=== PATIENT | male | born 1990 | race Caucasian/White ===

== ENCOUNTER 2017-09-29 19:34 | Emergency (ER) | payer OTHER ==
[2017-09-29 19:53] VITALS: O2SAT 97
[2017-09-29] MEDS ORDERED: NS 1,000 ML IV ONE ×2 (20:25→21:21)
[2017-09-29 20:29] LABS: % IMMATURE GRANULYOCYTES 0.5 % (0.0-1.1); ABSOLUTE IMMATURE GRANULOCYTES 0.06 10^3/uL (0.00-0.10); ADD DIFF? NO; ADD MORPH? NO; ADD SCAN? NO; ATYPICAL LYMPHOCYTE FLAG 30 (0-99); FRAGMENT RBC FLAG 0 (0-99); HEMATOCRIT 39.3 % (40.0-51.0); HEMOGLOBIN 13.9 g/dL (13.7-17.5); LEFT SHIFT FLG 0 (0-99); LIPEMIA HEMOLYSIS FLAG 90 (0-99); MEAN CELL HEMOGLOBIN 30.5 pg (27.9-34.1); MEAN CELL HEMOGLOBIN CONCENTR. 35.4 g/dL (32.4-36.7); MEAN CELL VOLUME 86.2 fL (81.5-99.8); MEAN PLATELET VOLUME 8.9 fL (8.7-11.7); PLATELET CLUMPS FLAG 0 (0-99); PLATELET COUNT 311 10^3/uL (150-400); RED BLOOD CELL COUNT 4.56 10^6/uL (4.40-6.38); RED CELL DISTRIBUTION WIDTH 11.8 % (11.5-15.2)
[2017-09-29 20:47] LABS: ALANINE AMINOTRANSFERASE 46 IU/L (21-72); ALBUMIN 4.3 g/dL (3.5-5.0); ALKALINE PHOSPHATASE 73 IU/L (38-126); ANION GAP 22 mEq/L (8-16); ASPARTATE AMINOTRANSFERASE 23 IU/L (17-59); BILIRUBIN,TOTAL 0.2 mg/dL (0.1-1.4); CALCIUM 9.4 mg/dL (8.5-10.4); CARBON DIOXIDE 26 mEq/l (22-31); CHLORIDE 100 mEq/L (97-110); CREATININE 0.9 mg/dL (0.7-1.3); GLOMERULAR FILTRATION RATE > 60; GLUCOSE 120 mg/dL (70-100); POTASSIUM 3.4 mEq/L (3.5-5.2); SODIUM 148 mEq/L (134-144); TOTAL PROTEIN 7.7 g/dL (6.3-8.2)
--- NOTE | 2017-09-29 21:05 | EDPHY ---
H & P Time Seen by Provider: 09/29/17 19:45 HPI/ROS: 27-year-old male presents complaining approximately 10 days. It initially began with a sore throat, cough, body aches, fevers and chills. By day 7 he began to have some vomiting, which has resolved. He states his last fever was yesterday at noon. He saw his primary care physician earlier this week who stated they felt he had the flu and recommended symptomatic care he was also prescribed guaifenesin with codeine. He presents today because he has had minimal urine output and has felt constipated. Just prior to being placed in a room in the emergency department he was able to urinate and described it as a normal amount, without difficulty and a normal color. He also complains headache and has noticed double vision today. Review of systems As per HPI General positive fever positive chills no weakness HEENT no eye pain no eye discharge. No eye redness, positive sore throat Respiratory positive cough, no shortness of breath Cardiac no chest pain, no peripheral edema GI no abdominal pain, no diarrhea, positive constipation positive nausea positive vomiting constipation, no flank pain, no hematuria, no dysuria Musculoskeletal positive myalgias, no joint pain Heme no easy bruising, no easy bleeding Endo no polyuria, no polydipsia Skin no rashes, no pruritus Neuro no syncope, no dizziness, no headaches Psych is no suicidal ideation, no homicidal ideation Past Medical/Surgical History: Noncontributory Social History: Denies alcohol or drug use Smoking Status: Never smoked Physical Exam: 27-year-old male alert and oriented no acute distress nontoxic appearance afebrile HEENT atraumatic normocephalic, extraocular muscles intact, anicteric Oropharynx negative for erythema negative exudate, tolerating his own secretions Neck supple no meningismus Nares mild yellowish discharge, no facial/sinus tenderness Lungs clear to auscultation bilaterally Heart regular rate and rhythm without murmur rub or gallop Abdomen nondistended normoactive bowel sounds soft nontender No fullness over bladder, no abdominal distension, not tympanitic No masses, no guarding no rebound Back no CVA tenderness, no step-offs, no spinal tenderness Extremities no cyanosis clubbing or edema Neuro alert and oriented, no focal deficits Constitutional: Initial Vital Signs Temperature (C) 36.8 C 09/29/17 19:50 Heart Rate 93 09/29/17 19:50 Respiratory Rate 16 09/29/17 19:50 Blood Pressure 115/66 09/29/17 19:50 O2 Sat (%) 97 09/29/17 19:50 O2 Delivery Mode Room Air Allergies/Adverse Reactions: No Known Allergies Allergy (Verified 09/29/17 19:53) Home Medications: Medication Instructions Recorded NK [No Known Home Meds] 09/29/17 Medical Decision Making - Diagnostics Imaging Results: Imaging Impressions Head CT 09/29/17 20:16 Impression: Normal CT of the head. Specifically, a headache source is not identified. Results called and discussed with Talya Moore M.D., on September 29, 2017 at 2106. Chest X-Ray 09/29/17 20:17 Impression: Normal. ED Course/Re-evaluation: The patient seen and evaluated for decreased urine output over the last 24 hours , flu-like illness for the last 10 days. Patient also complains of double vision with headache and therefore a CT scan of the brain was ordered. CT brain negative Negative for masses, negative for sinusitis Patient has had cough, therefore chest x-ray was done Chest x-ray negative Labs CBC, slightly elevated WBC 12, otherwise normal CMP elevated sodium 148, otherwise normal Lactate negative Patient was given 2 L normal saline Impression Dehydration Recent flu-like illness Constipation Plan Home with Mag citrate Recommended trying milk of magnesia tonight, and Mag citrate if that is not working Rest, acetaminophen or ibuprofen as needed for fever headache, drink plenty of liquids. Follow up with primary care physician on MondayOctober 02 Return to emergency as needed - Data Points Laboratory Results: Laboratory Results 09/29/17 20:25 09/29/17 20:25 09/29/17 09/29/17 09/29/17 20:25 20:25 20:25 WBC 12.18 10^3/uL H 10^3/uL (3.80-9.50) RBC 4.56 10^6/uL 10^6/uL (4.40-6.38) Hgb 13.9 g/dL g/dL (13.7-17.5) Hct 39.3 % L % (40.0-51.0) MCV 86.2 fL fL (81.5-99.8) MCH 30.5 pg pg (27.9-34.1) MCHC 35.4 g/dL g/dL (32.4-36.7) RDW 11.8 % % (11.5-15.2) Plt Count 311 10^3/uL 10^3/uL (150-400) MPV 8.9 fL fL (8.7-11.7) Neut % (Auto) 79.1 % H % (39.3-74.2) Lymph % (Auto) 12.2 % L % (15.0-45.0) [place] % (Auto) 7.1 % % (4.5-13.0) Eos % (Auto) 0.9 % % (0.6-7.6) Baso % (Auto) 0.2 % L % (0.3-1.7) Nucleat RBC Rel Count 0.0 % % (0.0-0.2) Absolute Neuts (auto) 9.62 10^3/uL H 10^3/uL (1.70-6.50) Absolute Lymphs (auto) 1.49 10^3/uL 10^3/uL (1.00-3.00) Absolute Monos (auto) 0.87 10^3/uL H 10^3/uL (0.30-0.80) Absolute Eos (auto) 0.11 10^3/uL 10^3/uL (0.03-0.40) Absolute Basos (auto) 0.03 10^3/uL 10^3/uL (0.02-0.10) Absolute Nucleated RBC 0.00 10^3/uL 10^3/uL (0-0.01) Immature Gran % 0.5 % % (0.0-1.1) Immature Gran # 0.06 10^3/uL 10^3/uL (0.00-0.10) VBG Lactic Acid 1.6 mmol/L mmol/L (0.7-2.1) Sodium 148 mEq/L H mEq/L (134-144) Potassium 3.4 mEq/L L mEq/L (3.5-5.2) Chloride 100 mEq/L mEq/L (97-110) Carbon Dioxide 26 mEq/l mEq/l (22-31) Anion Gap 22 mEq/L H mEq/L (8-16) BUN 8 mg/dL mg/dL (7-23) Creatinine 0.9 mg/dL mg/dL (0.7-1.3) Estimated GFR > 60 Glucose 120 mg/dL H mg/dL (70-100) Calcium 9.4 mg/dL mg/dL (8.5-10.4) Total Bilirubin 0.2 mg/dL mg/dL (0.1-1.4) AST 23 IU/L IU/L (17-59) ALT 46 IU/L IU/L (21-72) Alkaline Phosphatase 73 IU/L IU/L (38-126) Total Protein 7.7 g/dL g/dL (6.3-8.2) Albumin 4.3 g/dL g/dL (3.5-5.0) Lipase 55 IU/L IU/L (23-300) Medications Given: Discontinued Medications Sodium Chloride (Ns) 1,000 mls @ 0 mls/hr IV ONCE ONE PRN Reason: Wide Open Stop: 09/29/17 20:26 Last Admin: 09/29/17 20:42 Dose: 1,000 mls Sodium Chloride (Ns) 1,000 mls @ 0 mls/hr IV EDNOW ONE; Wide Open PRN Reason: Protocol Stop: 09/29/17 21:22 Last Admin: 09/29/17 21:25 Dose: 1,000 mls Departure - Departure Disposition: Home, Routine, Self-Care Clinical Impression: Dehydration, Constipation Condition: Good Instructions: Magnesium Citrate (By mouth), Constipation (ED), Dehydration (ED) , Viral Syndrome (ED) Referrals: NONE *PRIMARY CARE P,. [Primary Care Provider] - As per Instructions
[2017-09-29] MEDS ORDERED: MAGNESIUM CITRATE 300 ML BOTTLE PO ONE (22:04)
[2017-09-29] MEDS ORDERED: MAGNESIUM CITRATE 300 ML BOTTLE ONE (22:27)
[2017-09-29 22:35] VITALS: BP 122/81; PULSE 88; RESP 18; TEMP 98.4
== END 2017-09-29 22:31 | disposition home or self-care (01) ==
LOC: CED 19:34
DX: K59.00 Constipation, unspecified (principal); E86.0 Dehydration; E86.9 Volume depletion, unspecified
CPT/HCPCS: 70450-PO; 71020-PO; 80053-PO; 83605-PO; 83690-PO; 85025-PO

== ENCOUNTER 2017-09-30 20:21 | Inpatient (IN) | payer OTHER ==
--- NOTE | 2017-09-30 20:40 | EDPHY ---
H & P Stated Complaint: Dx with flu last week and now having confusion, weakness, and double vision Time Seen by Provider: 09/30/17 20:38 HPI/ROS: CHIEF COMPLAINT: Abnormal behavior, diplopia, difficulty walking, confusion, recent viral syndrome HISTORY OF PRESENT ILLNESS: The patient presents the ED with abnormal behavior characterized by confusion and some cognitive impairment, occasional diplopia, difficulty walking and confusion. The patient was seen at the [facility] Emergency Department yesterday for evaluation of the symptoms. He had laboratory studies which demonstrated a elevated white blood cell count. His serum electrolytes were normal. He underwent an unremarkable noncontrast head CT scan. The patient was discharged home however continued to have ongoing symptoms of confusion which prompted the return to the emergency department this evening. The patient did developed a flu-like illness approximately 12 days prior to arrival. He was not treated with antibiotics. REVIEW OF SYSTEMS: A comprehensive 10 point review of systems is otherwise negative aside from elements mentioned in the history of present illness. Source: Patient Exam Limitations: No limitations - Personal History Current Tetanus/Diphtheria Vaccine: Yes Current Tetanus Diphtheria and Acellular Pertussis (TDAP): Yes - Medical/Surgical History Hx Asthma: No Hx Chronic Respiratory Disease: No Hx Diabetes: No Hx Cardiac Disease: No Hx Renal Disease: No Hx Cirrhosis: No Hx Alcoholism: No Hx HIV/AIDS: No Hx Splenectomy or Spleen Trauma: No Other PMH: Denies. - Social History Smoking Status: Never smoked - Physical Exam Exam: General Appearance: Alert, appears uncomfortable Eyes: Pupils equal and round no pallor or injection ENT, Mouth: Dry mucous membranes Respiratory: There are no retractions, lungs are clear to auscultation Cardiovascular: Regular rate and rhythm Gastrointestinal: Abdomen is soft and nontender, no masses, bowel sounds normal Neurological: Alert and oriented x4, 5/5 strength noted all 4 extremities, slow finger to nose Skin: Warm and dry, no rashes Musculoskeletal: Mild meningeal symptoms with forward flexion Extremities: symmetrical, full range of motion Constitutional: Initial Vital Signs Heart Rate 78 09/30/17 20:25 Respiratory Rate 16 09/30/17 20:25 Blood Pressure 123/70 H 09/30/17 20:25 O2 Sat (%) 96 09/30/17 20:25 O2 Delivery Mode Room Air O2 (L/minute) 36.9 Allergies/Adverse Reactions: No Known Allergies Allergy (Verified 11/25/17 20:28) Home Medications: Medication Instructions Recorded Propranolol HCl 09/30/17 Medical Decision Making Procedures: Procedure: Lumbar puncture. Indication: Headache, fever, confusion After verbal informed consent from patient explaining the risks including infection, bleeding, and neurologic damage, a lumbar puncture was performed after the patient was prepped and draped in the usual fashion. The back was anesthetized with 1% lidocaine. Approximately 4 cc of clear fluid was obtained. Opening pressure was not obtained. There were no complications. The procedure was performed by myself. ED Course/Re-evaluation: I reviewed the results of the patient's workup at the [facility] ED yesterday. The patient had an unremarkable noncontrast head CT scan. Aside from mild leukocytosis the remainder of his laboratory studies were within normal limits. Given the patient's history of a recent influenza like infection with headache, altered mental status and fever I did inform the patient that a lumbar puncture would be indicated to exclude evidence of encephalitis/meningitis. The patient has verbally consented for this procedure. Patient presents to the ED with a constellation of abnormal neurologic symptoms including confusion, some amnesia, difficulty walking and intermittent diplopia. This is against the backdrop of a reported viral illness. Patient was noted to have elevated protein in his CSF. Given his neurologic complaints a brain MRI with and without contrast has been ordered. The patient was also noted to have hypernatremia with a sodium of 150. He received 2 L of normal saline for this condition. The patient will require admission to the hospital for further evaluation and management of his condition. The patient's Gram stain demonstrates 4+ mononuclear cells in his CSF. I have added on CSF PCR serology for HSV and enterovirus. Consultation is made with the hospitalist at 11:00 p.m.. I spoke with Dr. Paul who will admit the patient. Given the picture of mild encephalopathy the patient will be started on 10 milligrams/kilogram of IV acyclovir pending the results of his HSV PCR. Differential Diagnosis: Differential diagnosis considered includes meningitis, encephalitis, medication side effect, metabolic abnormality, dehydration - Data Points Laboratory Results: Laboratory Results 09/30/17 21:10 09/30/17 21:10 09/30/17 09/30/17 09/30/17 21:20 21:20 21:10 WBC RBC Hgb Hct MCV MCH MCHC RDW Plt Count MPV Neut % (Auto) Lymph % (Auto) [place] % (Auto) Eos % (Auto) Baso % (Auto) Nucleat RBC Rel Count Absolute Neuts (auto) Absolute Lymphs (auto) Absolute Monos (auto) Absolute Eos (auto) Absolute Basos (auto) Absolute Nucleated RBC Immature Gran % Immature Gran # Sodium Potassium Chloride Carbon Dioxide Anion Gap BUN Creatinine Estimated GFR Glucose Calcium CSF Tube Number 4 1 CSF Appearance CLEAR CLEAR (CLEAR) (CLEAR) CSF Color COLORLESS COLORLESS (COLORLESS) (COLORLESS) CSF Supernatant Pending Pending CSF WBC 139 /mm3 H /mm3 166 /mm3 H /mm3 (0-5) (0-5) CSF RBC 5 /mm3 H /mm3 0 /mm3 /mm3 (0-0) (0-0) CSF Neutrophils % Pending Pending CSF Glucose 62 mg/dL mg/dL (50-75) CSF Total Protein 125 mg/dL H mg/dL (12-60) Ethyl Alcohol < 10 mg/dL mg/dL (0-10) 09/30/17 09/30/17 21:10 21:10 WBC 8.21 10^3/uL 10^3/uL (3.80-9.50) RBC 4.23 10^6/uL L 10^6/uL (4.40-6.38) Hgb 12.8 g/dL L g/dL (13.7-17.5) Hct 37.0 % L % (40.0-51.0) MCV 87.5 fL fL (81.5-99.8) MCH 30.3 pg pg (27.9-34.1) MCHC 34.6 g/dL g/dL (32.4-36.7) RDW 11.9 % % (11.5-15.2) Plt Count 317 10^3/uL 10^3/uL (150-400) MPV 9.5 fL fL (8.7-11.7) Neut % (Auto) 67.2 % % (39.3-74.2) Lymph % (Auto) 20.2 % % (15.0-45.0) [place] % (Auto) 9.7 % % (4.5-13.0) Eos % (Auto) 1.9 % % (0.6-7.6) Baso % (Auto) 0.4 % % (0.3-1.7) Nucleat RBC Rel Count 0.0 % % (0.0-0.2) Absolute Neuts (auto) 5.51 10^3/uL 10^3/uL (1.70-6.50) Absolute Lymphs (auto) 1.66 10^3/uL 10^3/uL (1.00-3.00) Absolute Monos (auto) 0.80 10^3/uL 10^3/uL (0.30-0.80) Absolute Eos (auto) 0.16 10^3/uL 10^3/uL (0.03-0.40) Absolute Basos (auto) 0.03 10^3/uL 10^3/uL (0.02-0.10) Absolute Nucleated RBC 0.00 10^3/uL 10^3/uL (0-0.01) Immature Gran % 0.6 % % (0.0-1.1) Immature Gran # 0.05 10^3/uL 10^3/uL (0.00-0.10) Sodium 150 mEq/L H mEq/L (134-144) Potassium 3.9 mEq/L mEq/L (3.5-5.2) Chloride 108 mEq/L mEq/L (97-110) Carbon Dioxide 28 mEq/l mEq/l (22-31) Anion Gap 14 mEq/L mEq/L (8-16) BUN 6 mg/dL L mg/dL (7-23) Creatinine 0.9 mg/dL mg/dL (0.7-1.3) Estimated GFR > 60 Glucose 105 mg/dL H mg/dL (70-100) Calcium 9.3 mg/dL mg/dL (8.5-10.4) CSF Tube Number CSF Appearance CSF Color CSF Supernatant CSF WBC CSF RBC CSF Neutrophils % CSF Glucose CSF Total Protein Ethyl Alcohol Microbiology Results: MICROBIOLOGY 09/30/17 21:20 Cerebral Spinal Fluid Gram Stain - Final Medications Given: Discontinued Medications Sodium Chloride (Ns) 1,000 mls @ 0 mls/hr IV EDNOW ONE; Wide Open PRN Reason: Protocol Stop: 09/30/17 22:01 Last Admin: 09/30/17 22:11 Dose: 1,000 mls Sodium Chloride (Ns) 1,000 mls @ 0 mls/hr IV EDNOW ONE; Wide Open PRN Reason: Protocol Stop: 09/30/17 22:03 Last Admin: 09/30/17 22:11 Dose: 1,000 mls Departure - Departure Disposition: [facility] Inpatient Acute Clinical Impression: Viral meningitis, Hypernatremia, Dehydration Condition: Good Referrals: Shahbaz Fowler MD [Primary Care Provider] - As per Instructions
[2017-09-30 21:44] LABS: ANION GAP 14 mEq/L (8-16); CALCIUM 9.3 mg/dL (8.5-10.4); CARBON DIOXIDE 28 mEq/l (22-31); CHLORIDE 108 mEq/L (97-110); CREATININE 0.9 mg/dL (0.7-1.3); GLOMERULAR FILTRATION RATE > 60; GLUCOSE 105 mg/dL (70-100); POTASSIUM 3.9 mEq/L (3.5-5.2); SODIUM 150 mEq/L (134-144)
[2017-09-30 21:48] LABS: % IMMATURE GRANULYOCYTES 0.6 % (0.0-1.1); ABSOLUTE IMMATURE GRANULOCYTES 0.05 10^3/uL (0.00-0.10); ADD DIFF? NO; ADD MORPH? NO; ADD SCAN? NO; ATYPICAL LYMPHOCYTE FLAG 50 (0-99); FRAGMENT RBC FLAG 0 (0-99); HEMOGLOBIN 12.8 g/dL (13.7-17.5); LEFT SHIFT FLG 0 (0-99); LIPEMIA HEMOLYSIS FLAG 90 (0-99); MEAN CELL HEMOGLOBIN 30.3 pg (27.9-34.1); MEAN CELL HEMOGLOBIN CONCENTR. 34.6 g/dL (32.4-36.7); MEAN CELL VOLUME 87.5 fL (81.5-99.8); MEAN PLATELET VOLUME 9.5 fL (8.7-11.7); PLATELET CLUMPS FLAG 0 (0-99); PLATELET COUNT 317 10^3/uL (150-400); RED BLOOD CELL COUNT 4.23 10^6/uL (4.40-6.38); RED CELL DISTRIBUTION WIDTH 11.9 % (11.5-15.2)
[2017-09-30] MEDS ORDERED: NS 1,000 ML IV ONE ×2 (22:00→22:02)
[2017-09-30 22:20] LABS: PROTEIN, CSF 125 mg/dL (12-60)
[2017-09-30 22:24] LABS: ETHANOL SERUM < 10 mg/dL (0-10)
[2017-09-30 22:45] LABS: CSF APPEARANCE CLEAR (CLEAR); CSF COLOR COLORLESS (COLORLESS); WBC, CSF 166 /mm3 (0-5)
[2017-09-30 23:07] LABS: CSF APPEARANCE CLEAR (CLEAR); CSF COLOR COLORLESS (COLORLESS); WBC, CSF 139 /mm3 (0-5)
[2017-09-30] MEDS ORDERED: ONDANSETRON 4 MG/2 ML VIAL IVP PRN (23:08)
[2017-09-30] MEDS ORDERED: ONDANSETRON DISINTEGRATING 4 MG TAB PO PRN (23:08)
[2017-09-30] MEDS ORDERED: D5W IV SCH (23:10)
[2017-09-30] MEDS ORDERED: ACYCLOVIR IV SCH (23:10)
--- NOTE | 2017-09-30 23:38 | PDGENHP ---
History and Physical - Chief Complaint Headache, confusion - History of Present Illness 27 yo M w/ no PMHx presents with 2 weeks of viral symptoms. Patient first began to experience fatigue, fevers, congestion, and body aches about 2 weeks ago. He continued to have high fevers (102-103) for about a week. Then, a few days prior to presentation his fevers subsided but he then developed a headache and intermittent confusion. Confusion worsened today as well as new blurred vision so patient came to the ED. Of note, he had a flu test 2 weeks ago that was negative. Patient denies sick contacts, recent travel (aside from [place]), and knowledge of mosquito bites. History Information - Allergies/Home Medication List Allergies/Adverse Reactions: No Known Allergies Allergy (Verified 09/30/17 20:28) Home Medications: Propranolol HCl 09/30/17 [Last Taken Unknown] I have personally reviewed and updated: family history, medical history - Past Medical History no pertinent PMH - Family History Positive for: non-pertinent Additional family history: Asked, denies family history - Social History Smoking Status: Never smoked Review of Systems Review of Systems: ROS: 10pt was reviewed & negative except for what was stated in HPI & below Physical Exam Physical Exam: Temp Pulse Resp BP Pulse Ox 54 L 15 130/85 H 97 09/30/17 22:00 09/30/17 22:00 09/30/17 22:00 09/30/17 22:00 Constitutional: appears nourished, uncomfortable Eyes: PERRL, EOMI Ears, Nose, Mouth, Throat: moist mucous membranes, no oral mucosal ulcers Cardiovascular: regular rate and rhythym, no murmur, rub, or gallop Respiratory: no respiratory distress, clear to auscultation Gastrointestinal: normoactive bowel sounds, soft, non-tender abdomen Skin: warm, normal color Musculoskeletal: full muscle strength, no muscle tenderness Neurologic: AAOx3, sensation intact bilaterally, CN II-XII Intact, No weakness, No numbness, No facial droop Psychiatric: interacting appropriately, not anxious Lab Data & Imaging Review 09/30/17 21:10 09/30/17 21:10 WBC 8.21 10^3/uL (3.80-9.50) 09/30/17 21:10 RBC 4.23 10^6/uL (4.40-6.38) L 09/30/17 21:10 Hgb 12.8 g/dL (13.7-17.5) L 09/30/17 21:10 Hct 37.0 % (40.0-51.0) L 09/30/17 21:10 MCV 87.5 fL (81.5-99.8) 09/30/17 21:10 MCH 30.3 pg (27.9-34.1) 09/30/17 21:10 MCHC 34.6 g/dL (32.4-36.7) 09/30/17 21:10 RDW 11.9 % (11.5-15.2) 09/30/17 21:10 Plt Count 317 10^3/uL (150-400) 09/30/17 21:10 MPV 9.5 fL (8.7-11.7) 09/30/17 21:10 Neut % (Auto) 67.2 % (39.3-74.2) 09/30/17 21:10 Lymph % (Auto) 20.2 % (15.0-45.0) 09/30/17 21:10 [place] % (Auto) 9.7 % (4.5-13.0) 09/30/17 21:10 Eos % (Auto) 1.9 % (0.6-7.6) 09/30/17 21:10 Baso % (Auto) 0.4 % (0.3-1.7) 09/30/17 21:10 Nucleat RBC Rel Count 0.0 % (0.0-0.2) 09/30/17 21:10 Absolute Neuts (auto) 5.51 10^3/uL (1.70-6.50) 09/30/17 21:10 Absolute Lymphs (auto) 1.66 10^3/uL (1.00-3.00) 09/30/17 21:10 Absolute Monos (auto) 0.80 10^3/uL (0.30-0.80) 09/30/17 21:10 Absolute Eos (auto) 0.16 10^3/uL (0.03-0.40) 09/30/17 21:10 Absolute Basos (auto) 0.03 10^3/uL (0.02-0.10) 09/30/17 21:10 Absolute Nucleated RBC 0.00 10^3/uL (0-0.01) 09/30/17 21:10 Immature Gran % 0.6 % (0.0-1.1) 09/30/17 21:10 Immature Gran # 0.05 10^3/uL (0.00-0.10) 09/30/17 21:10 Sodium 150 mEq/L (134-144) H 09/30/17 21:10 Potassium 3.9 mEq/L (3.5-5.2) 09/30/17 21:10 Chloride 108 mEq/L (97-110) 09/30/17 21:10 Carbon Dioxide 28 mEq/l (22-31) 09/30/17 21:10 Anion Gap 14 mEq/L (8-16) 09/30/17 21:10 BUN 6 mg/dL (7-23) L 09/30/17 21:10 Creatinine 0.9 mg/dL (0.7-1.3) 09/30/17 21:10 Estimated GFR > 60 09/30/17 21:10 Glucose 105 mg/dL (70-100) H 09/30/17 21:10 Calcium 9.3 mg/dL (8.5-10.4) 09/30/17 21:10 CSF Tube Number 4 09/30/17 21:20 CSF Appearance CLEAR (CLEAR) 09/30/17 21:20 CSF Color COLORLESS (COLORLESS) 09/30/17 21:20 CSF WBC 139 /mm3 (0-5) H 09/30/17 21:20 CSF RBC 5 /mm3 (0-0) H 09/30/17 21:20 CSF Neutrophils % 4 % (0-6) 09/30/17 21:20 CSF Lymphocytes % 76 % (0-100) 09/30/17 21:20 CSF Monos/Macrophage % 19 % (0-45) 09/30/17 21:20 CSF Glucose 62 mg/dL (50-75) 09/30/17 21:20 CSF Total Protein 125 mg/dL (12-60) H 09/30/17 21:20 Ethyl Alcohol < 10 mg/dL (0-10) 09/30/17 21:10 Assessment & Plan Assessment: 27 yo M presenting with likely viral meningitis. Plan: 1. Viral meningitis, possible encephalitis - Viral syndrome for 2 weeks marked by several days of high fevers followed by development of FISHER, confusion, and blurred vision. Neurologically intact currently aside from reported blurred vision, which improves with closing of either eye. LP performed in ED(tube 4) notable for 139 WBCs, 76% lymphocytes, only 5 RBCs, and elevated protein. - Will empirically start Acyclovir 10 mg/kg IV q8h pending result of HSV PCR noting confusion, blurred vision despite low RBC count in CSF - HSV PCR and enterovirus PCR sent on CSF; respiratory PCR panel ordered - Obtain brain MRI - Supportive care, no antibiotics currently - Check blood cultures - ID consult placed Diet - Regular Code - Full Ppx - Low risk Dispo - Admit to observation status
[2017-09-30 23:40] LABS: CSF SUPERNATANT COLORLESS (COLORLESS)
[2017-10-01] MEDS ORDERED: GADOBUTROL 10 ML VIAL IVP ONE (00:04)
[2017-10-01] MEDS: D5W IV SCH ×4 (01:17→21:31)
[2017-10-01] MEDS: ACYCLOVIR IV SCH ×4 (01:17→21:31)
[2017-10-01] MEDS: ACETAMINOPHEN 325 MG TAB PO PRN ×2 (01:38→07:52)
[2017-10-01 03:20] LABS: ANION GAP 12 mEq/L (8-16); CALCIUM 8.8 mg/dL (8.5-10.4); CARBON DIOXIDE 23 mEq/l (22-31); CHLORIDE 110 mEq/L (97-110); CREATININE 0.7 mg/dL (0.7-1.3); GLOMERULAR FILTRATION RATE > 60; GLUCOSE 106 mg/dL (70-100); POTASSIUM 3.6 mEq/L (3.5-5.2); SODIUM 145 mEq/L (134-144)
[2017-10-01 03:38] LABS: % IMMATURE GRANULYOCYTES 0.7 % (0.0-1.1); ABSOLUTE IMMATURE GRANULOCYTES 0.06 10^3/uL (0.00-0.10); ADD DIFF? NO; ADD MORPH? NO; ADD SCAN? NO; ATYPICAL LYMPHOCYTE FLAG 60 (0-99); FRAGMENT RBC FLAG 0 (0-99); HEMATOCRIT 33.7 % (40.0-51.0); HEMOGLOBIN 12.1 g/dL (13.7-17.5); LEFT SHIFT FLG 0 (0-99); LIPEMIA HEMOLYSIS FLAG 90 (0-99); MEAN CELL HEMOGLOBIN 30.9 pg (27.9-34.1); MEAN CELL HEMOGLOBIN CONCENTR. 35.9 g/dL (32.4-36.7); MEAN CELL VOLUME 86.2 fL (81.5-99.8); MEAN PLATELET VOLUME 9.4 fL (8.7-11.7); PLATELET CLUMPS FLAG 0 (0-99); PLATELET COUNT 315 10^3/uL (150-400); RED BLOOD CELL COUNT 3.91 10^6/uL (4.40-6.38); RED CELL DISTRIBUTION WIDTH 12.1 % (11.5-15.2)
[2017-10-01 03:39] LABS: COLOR PALE YELLOW; LEUKOCYTE ESTERASE,URINE NEGATIVE (NEGATIVE); NITRITE,URINE NEGATIVE (NEGATIVE)
[2017-10-01] MEDS ORDERED: ACYCLOVIR IV SCH (06:00)
[2017-10-01] MEDS ORDERED: D5W IV SCH (06:00)
[2017-10-01 07:18] LABS: CSF SUPERNATANT COLORLESS (COLORLESS)
[2017-10-01] MEDS ORDERED: PROPRANOLOL HCL 20 MG TAB PO PRN (09:47)
[2017-10-01] MEDS ORDERED: DIAZEPAM 5 MG TAB PO PRN (09:47)
[2017-10-01] MEDS ORDERED: guaiFENesin 600 MG TAB.ER PO PRN (09:47)
--- NOTE | 2017-10-01 14:15 | HOSPPROG ---
Hospitalist Progress Note Assessment/Plan: 27 yo M presenting with likely viral meningitis. First encounter, chart reviewed. D/W Dr Salinas. Plan: 1. Viral meningitis, possible encephalitis - Viral syndrome for 2 weeks marked by several days of high fevers followed by development of FISHER, confusion, and blurred vision. Neurologically intact currently aside from reported blurred vision, which has improved. LP performed in ED(tube 4) notable for 139 WBCs, 76% lymphocytes, only 5 RBCs, and elevated protein. - Will empirically start Acyclovir 10 mg/kg IV q8h pending result of HSV PCR noting confusion, blurred vision despite low RBC count in CSF - HSV PCR and enterovirus PCR sent on CSF; respiratory PCR panel ordered - brain MRI stable - Supportive care, no antibiotics currently - Check blood cultures - ID consult pending Diet - Regular Code - Full Ppx - Low risk Dispo - Admit to observation status Subjective: Feels terrible. Still uncomfortable. Objective: Vital Signs Temp Pulse Resp BP Pulse Ox 36.9 C 98 16 114/60 94 10/01/17 11:24 10/01/17 11:24 10/01/17 11:24 10/01/17 11:24 10/01/17 11:24 Laboratory Results 10/01/17 02:50 10/01/17 02:50 09/30/17 10/01/17 10/02/17 05:59 05:59 05:59 Intake Total 2750 Output Total 800 Balance 1950 - Physical Exam Constitutional: appears nourished, not in pain, uncomfortable Eyes: PERRL, anicteric sclera, EOMI Ears, Nose, Mouth, Throat: moist mucous membranes, hearing normal, ears appear normal Cardiovascular: No JVD, No tachycardia, No edema Respiratory: no respiratory distress, no rales or rhonchi, reduced air movement Gastrointestinal: No tenderness, No ascites, No guarding Skin: warm, normal color, No erythema Musculoskeletal: normal joint ROM, no joint effusions, generalized weakness Neurologic: AAOx3 Psychiatric: interacting appropriately, not encephalopathic, thought process linear ICD10 Worksheet Patient Problems: Problems Problem Status Onset Viral meningitis Acute Hypernatremia Acute Dehydration Acute
--- NOTE | 2017-10-01 14:50 | PDMN ---
Medical Necessity Medical necessity: C/M review: Acute vital meningitis, possible encephalitis requiring planned Infectious disease consult, ongoing IV Acyclovir Q 8 hrs., IV fluids, comorbid viral syndrome for 2weeks marked by several days of high fevers followed by development of headache, confusion, blurred vision prior to this admission. DISTRIBUTION DISPATCHER expects > 2 MN LOS for ongoing med nec for eval and TX of above.
[2017-10-01] MEDS ORDERED: D5W 1/2 NS 1,000 ML IV SCH (15:00)
--- NOTE | 2017-10-01 15:11 | ASMTCMCOM ---
CM Note CM Note Notes: Pt admitted with meningiis. Anticipate d/c with no CM needs when medically cleared however CM will continue to follow for any change in needs. Date Signed: 10/01/2017 03:10 PM Electronically Signed By:IZZY Quach
--- NOTE | 2017-10-01 18:47 | GCON ---
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 HISTORY OF PRESENT ILLNESS: Patient is a 27-year-old male who was admitted to [facility] on 09/30/2017 secondary to confusion and headache. The patient underwent a spinal tap which showe d pleocytosis which was lymphocytic in nature. He has had a history of 2 weeks of viral symptoms, wi th initially fatigue, fevers, and body aches, but he continued to have high fevers for approximately 1 week. He has not had any fever for 4 days, but he developed a headache and intermittent confusion. He also developed double vision. The patient was admitted and started empirically on IV acyclovir. Currently, he is resting comfortably in bed. He is surrounded by his family. His confusion has al leviated somewhat. He still has some word-finding issues. His double vision has resolved. No fever s. He was unsteady on his feet today. He had a controlled fall in the bathroom earlier. PAST MEDICAL HISTORY: None. PAST SURGICAL HISTORY: None. ALLERGIES: No known medical allergies. ANTIBIOTICS: Acyclovir. SOCIAL HISTORY: Patient is . No tobacco or significant alcohol use. FAMILY HISTORY: Reviewed, but noncontributory. REVIEW OF SYSTEMS: Other than that detailed above in History of Present Illness, comprehensive 10-sy stem review is negative. PHYSICAL EXAMINATION: VITAL SIGNS: Temperature maximum is 37.4, temperature current is 37.4. Heart rate is 79, respiratory rate is 16, blood pressure is 122/73. GENERAL: The patient is a well-forme d, well-nourished young male, in no acute distress. He is not toxic in appearance. He is alert and oriented x3. He has a pleasant demeanor. HEENT: Normocephalic for age. Atraumatic. No scleral ic terus. No oral lesion or drainage from the nares. Eyes, lids, and conjunctivae are within normal li mits. Pupils are equal and round bilaterally. NECK: Supple. Minimal meningismus. HEART: Regular rate and rhythm. No murmur, rub, or gallop noted. LUNGS: Clear to auscultation bilaterally. Good effort. SKIN: Warm and dry to the touch. No rashes noted. MUSCULOSKELETAL: No muscle belly tend erness is noted. No joint line effusion or arthritis is seen. NEUROLOGIC: Cranial nerves 2-12 seem to be intact. Peripheral sensation is intact. Mild confusion, mild cognitive slowing. LABORATORY DATA: Patient has a CBC dated 10/01/2017 that shows a white blood cell count of 8.95, hem oglobin of 12.1, hematocrit of 33.7, and a platelet count of 315. Differential is within normal limi ts. Serum chemistries on 10/01/2017 show a sodium of 145, potassium of 3.6, chloride of 110, bicarbo laith of 23, BUN of 5, creatinine of 0.7. Urinalysis on 10/01/2017 is within normal limits. Spinal f luid results from 09/30/2017 show 139 white blood cells and 5 red blood cells. The differential on t he white cell count is 76% lymphocytes. Total protein was elevated at 125. The patient has enterovi ral PCR as well as HSV PCR pending. MICROBIOLOGIC DATA: Patient has blood cultures dated 10/01/2017 which are pending. Patient also has a respiratory panel PCR showing no organisms detected. The patient also has a spinal fluid culture dated 09/30/2017. Gram stain shows no organisms, 4+ mononuclear white cells. Cultures no growth to date. RADIOLOGIC DATA: Patient has a brain MRI with and without contrast from 09/30/2017 that shows no acu te findings. Limited by motion artifact. ASSESSMENT: Aseptic meningitis. Most likely viral. Enterovirus family is the most likely diagnosis here. Patient has some significant symptoms of encephalitis as well as meningitis. Would also put influenza on the list of possible causes. At this point, we will continue the acyclovir. He is clin ically not ready to go home yet today. We will reevaluate tomorrow. PLAN: 1. Continue empiric acyclovir. 2. Add influenza PCR to the CSF study. 3. Follow clinical improvement. /[id number]/MODL
[2017-10-01] MEDS: IBUPROFEN 200 MG TAB PO PRN (21:31)
[2017-10-02] MEDS: D5W IV SCH ×3 (05:55→20:58)
[2017-10-02] MEDS: ACYCLOVIR IV SCH ×3 (05:55→20:58)
[2017-10-02] MEDS: CETIRIZINE 10 MG TAB PO SCH (08:42)
[2017-10-02] MEDS ORDERED: LACTULOSE 20 GM/30 ML UDCUP PO PRN (10:00)
[2017-10-02] MEDS ORDERED: POLYETHYLENE GLYCOL 3350 17 GM PKT PO PRN (10:00)
[2017-10-02] MEDS ORDERED: BISACODYL 10 MG SUPP PR PRN (10:00)
[2017-10-02] MEDS ORDERED: MAGNESIUM HYDROXIDE 30 ML UDCUP PO PRN (10:00)
--- NOTE | 2017-10-02 10:02 | HOSPPROG ---
Hospitalist Progress Note Assessment/Plan: 27 yo M presenting with likely viral meningitis. First encounter, chart reviewed. * aseptic meningitis, encephalitis -continue empiric acyclovir -MRI stable -enterovirus pending -CSF culture shows no growth -respiratory PCR panel is negative -having some forgetfulness and some gait issues -appreciate PT and OT -patient had a recent URI *chest pain -has some pain with deep breaths since he had an URI -?pericarditis/will get an EKG *Hypernatremia -improved * constipation -bowel protocol *Plan: will await further input from OT, PT, ST and infectious disease physician. Subjective: Rufus is feeling fine, has a mild headache and had some difficulty w walking. Objective: Vital Signs Temp Pulse Resp BP Pulse Ox 36.9 C 75 16 127/89 H 93 10/02/17 08:00 10/02/17 08:00 10/02/17 08:00 10/02/17 08:00 10/02/17 08:00 10/01/17 10/02/17 10/03/17 05:59 05:59 05:59 Intake Total 566 150 Output Total 301 Balance 265 150 - Physical Exam Constitutional: no apparent distress Eyes: PERRL Ears, Nose, Mouth, Throat: hearing normal Cardiovascular: regular rate and rhythym, no murmur, rub, or gallop Respiratory: no respiratory distress Gastrointestinal: normoactive bowel sounds Skin: warm Musculoskeletal: generalized weakness Neurologic: AAOx3 Psychiatric: interacting appropriately ICD10 Worksheet Patient Problems: Problems Problem Status Onset Dehydration Acute Hypernatremia Acute Viral meningitis Acute
--- NOTE | 2017-10-02 12:45 | CPEKG ---
Heart Rate: 65 RR Interval: 923 P-R Interval: 160 QRSD Interval: 84 QT Interval: 428 QTC Interval: 445 P Taylor: 52 QRS Taylor: 76 T Wave Taylor: 41 EKG Severity - OTHERWISE NORMAL ECG - EKG Impression: SINUS ARRHYTHMIA, RATE 47-75 Electronically Signed By: Akhil Rodrigues 02-Oct-2017 15:49:06
[2017-10-02] MEDS: SENNOSIDES/DOCUSATE SODIUM TAB PO SCH ×2 (13:01→20:58)
--- NOTE | 2017-10-02 19:07 | PCMIDPN ---
Assessment/Plan: Assessment/Plan: * Meningoencephalitis: Clinical and CSF findings most consistent with viral etiology. Suspect most likely enterovirus as etiology. HSV remains in the differential diagnosis although no temporal abnormality seen on MRI of brain. Will continue acyclovir pending HSV PCR on CSF. Follow creatinine while on high -dose acyclovir. Await enterovirus PCR as well. Influenza PCR of CSF is negative. Continue to observe off antibacterial agents as clinical findings not suggestive of bacterial meningitis and CSF culture remains negative. Will discontinue respiratory droplet precautions. Clinical findings and plan reviewed with patient's family this evening. 10/02/17 19:03 10/02/17 19:08 Subjective: Patient with intermittent mild confusion and some imbalance earlier today. Now resting soundly. History reviewed with patient's including recent travel to [facility]. No unusual animal or dietary exposures. Attends [employer] school working on his [employer]. Family notes that he has gait imbalance with turning. Seen earlier today by Neurology as well. Other medical history and laboratory/radiographic findings have been reviewed. Objective: Vital Signs Temp Pulse Resp BP Pulse Ox 37.0 C 78 18 121/74 H 94 10/02/17 16:00 10/02/17 16:00 10/02/17 16:00 10/02/17 16:00 10/02/17 16:00 10/01/17 10/02/17 10/03/17 05:59 05:59 05:59 Intake Total 566 150 Output Total 301 Balance 265 150 Acyclovir # 2 CSF culture no growth to date Blood cultures x2 no growth CSF for HSV and enterovirus PCR pending; CSF influenza PCR negative MRI of brain without abnormal leptomeningeal enhancement - Physical Exam General Appearance: non-toxic, other (Sleeping soundly and was not awoken) ICD10 Worksheet Patient Problems: Problems Problem Status Onset Dehydration Acute Hypernatremia Acute Viral meningitis Acute
[2017-10-02] MEDS: IBUPROFEN 200 MG TAB PO PRN (19:14)
--- NOTE | 2017-10-02 20:36 | GCON ---
[f rep st] CONSULTATION REFERRING PHYSICIAN: Juana Cheung NP HISTORY: The patient is a 27-year-old gentleman who I am asked to see in neurologic consultation reg arding neurologic symptoms and findings associated with a viral meningoencephalitis of uncertain sour ce. The patient's history is reviewed in the medical records as well as a detailed discussion with his fa ther and brief information obtained from the patient and his . He came to the hospital on . He has a history that dates back a few weeks prior to that when he was having symptoms sugg estive of possible influenza. There was fever and some fatigue, congestion, body aches, and intermit tent evaluations with uncertain source but not initially symptoms very suspicious for meningitis. He developed some headache prior to admission, which became rather intense on the day of admission that was becoming associated with some confusion and he had had some more double vision or fluctuating do uble vision. His actual influenza test previously was negative. There was not specific exposure to illness, but he traveled to a football game with a large number of individuals when he was in [place] . He currently says he has a moderate headache, but denies neck pain. He isn't having focal numbness o r weakness. He has had periods that his father has witnessed where he is relatively less responsive and appears to fall asleep abruptly and sometimes was looking toward him but not really interacting f or several seconds without any more specificity. There was certainly no seizure activity witnessed i n terms of focal movements. PAST MEDICAL HISTORY: Unremarkable. FAMILY HISTORY: Unremarkable. SOCIAL HISTORY: No smoking. 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 ALLERGIES: No known drug allergies. MEDICATIONS: Prior to admission, at home he was taking some Zyrtec, propranolol as needed, Mucinex, Tylenol, ibuprofen. Here in the hospital, he is getting acyclovir, Zyrtec, Valium as needed for pain . PHYSICAL EXAM: VITAL SIGNS: Blood pressure 121/74, pulse of 78, respirations 18, temperature 37. G ENERAL: He is well developed, lying in the bed, lethargic but in no acute distress. He arouses to v oice, but tends to then drift back to sleep intermittently during the exam. He is able to answer bas ic questions and follow commands effectively. He has no memory for the details of what has occurred. NEUROLOGIC: Pupils are 2 mm. He has a dysconjugate gaze at rest with the eyes adducted for the mo st part when he is resting, although he can get more appropriate position of the eyes as he becomes m ore alert. When checking the eye movements, he has distinct impairments of abduction in both eyes wi th relative preservation of adduction. There is some limitation in up gaze and down gaze and some reggie bbing nystagmus on up gaze and on sustained up gaze. The face is not weak. Palate elevates symmetri fadumo. Tongue goes midline. No facial sensory loss. Hearing is preserved. No weakness when I have him move his head and no pain with movement of the head either on his own when I turn his head. Mot or exam reveals 5/5 strength and no sensory loss. IMAGING: He had brain MRI on September 30, which I did review. There were no areas of abnormal sig nal. LABORATORY STUDIES: Normal white count of 8000 currently, hematocrit 33%. Chemistry showing sodium of 145, BUN 5, glucose 106. Urinalysis was clear. CSF showed 166 white cells with 85% lymphocytes, protein of 125. The PCR testing is pending. Tox screen showed no alcohol. Enterovirus PCR is also pending. IMPRESSION: The total unit time was 50 minutes reviewing his case, discussing his case, examining mt m, and reviewing all medical records. The patient has aseptic meningitis at this point, suspected vi ral source with enterovirus top of the differential, but being covered for HSV with acyclovir until t he PCR returns. There is no specificity to the cerebrospinal fluid findings at this point, other jake n a meningeal picture. He has encephalitis with the involvement of cranial nerves and also the cogni tive changes. The inflammatory changes triggering this will likely gradually resolve over the next s everal weeks. Long-term prognosis is undetermined yet but remains good. I will continue to follow h im daily for his progress. I answered questions from the patient as well as his father and . /[id number]/MODL
[2017-10-02] MEDS ORDERED: SENNOSIDES/DOCUSATE SODIUM TAB PO SCH (21:00)
[2017-10-03 05:29] LABS: ANION GAP 14 mEq/L (8-16); CALCIUM 9.6 mg/dL (8.5-10.4); CARBON DIOXIDE 27 mEq/l (22-31); CHLORIDE 105 mEq/L (97-110); CREATININE 0.9 mg/dL (0.7-1.3); GLOMERULAR FILTRATION RATE > 60; GLUCOSE 87 mg/dL (70-100); POTASSIUM 4.5 mEq/L (3.5-5.2); SODIUM 146 mEq/L (134-144)
[2017-10-03] MEDS: D5W IV SCH ×2 (06:00→16:06)
[2017-10-03] MEDS: ACYCLOVIR IV SCH ×2 (06:00→16:06)
--- NOTE | 2017-10-03 08:56 | PCMIDPN ---
Assessment/Plan: Assessment/Plan: 1. Lymphocytic meningitis: - Currently on empiric acyclovir - creatinine stable at 0.9. - HSV PCR and Enteroviral PCR pending -blood cx ngtd, CSF ngtd, and neg resp viral panel -Continue with current care -patient and updated. Meds acyclovir 820mg q8- 10/01/17 Subjective: afebrile. feeling better today comparatively. no headache this morning. still mild photophobia. no neck stiffness. denies n,v,d. no other complaints. at bedside. Objective: Vital Signs Temp Pulse Resp BP Pulse Ox 37.1 C 79 18 100/69 94 10/03/17 08:00 10/03/17 08:00 10/03/17 08:00 10/03/17 08:00 10/03/17 08:00 Laboratory Results 10/03/17 05:00 10/02/17 10/03/17 10/04/17 05:59 05:59 05:59 Intake Total 566 650 Output Total 301 Balance 265 650 - Physical Exam General Appearance: alert, no apparent distress Respiratory: lungs clear Neck: supple Cardiac/Chest: regular rate, rhythm Extremities: No swelling Abdomen: normal bowel sounds, non-tender, soft, No distended ICD10 Worksheet Patient Problems: Problems Problem Status Onset Dehydration Acute Hypernatremia Acute Viral meningitis Acute
[2017-10-03] MEDS: SENNOSIDES/DOCUSATE SODIUM TAB PO SCH ×2 (09:36→20:39)
[2017-10-03] MEDS: CETIRIZINE 10 MG TAB PO SCH (09:36)
[2017-10-03] MEDS: ACETAMINOPHEN 325 MG TAB PO PRN ×2 (09:36→19:23)
--- NOTE | 2017-10-03 10:41 | HOSPPROG ---
Hospitalist Progress Note Assessment/Plan: 27 yo M presenting with likely viral meningitis. Appreciate Dr Araujo and Dr Ceja seeing. * aseptic meningitis, encephalitis -continue empiric acyclovir -MRI stable -enterovirus & HSV PCR pending -CSF culture shows no growth -patient had a recent URI *chest pain -none further *Hypernatremia -improved * constipation -bowel protocol *Plan: will need IP stay. He is feeling better, but has headaches. Subjective: Rufus is sleepy, had a headache earlier. Objective: Vital Signs Temp Pulse Resp BP Pulse Ox 37.1 C 79 18 100/69 94 10/03/17 08:00 10/03/17 08:00 10/03/17 08:00 10/03/17 08:00 10/03/17 08:00 Laboratory Results 10/03/17 05:00 10/02/17 10/03/17 10/04/17 05:59 05:59 05:59 Intake Total 566 650 Output Total 301 Balance 265 650 - Physical Exam Constitutional: no apparent distress, appears nourished, not in pain Eyes: PERRL Ears, Nose, Mouth, Throat: hearing normal Respiratory: no respiratory distress Gastrointestinal: normoactive bowel sounds Skin: warm Neurologic: AAOx3 Psychiatric: interacting appropriately ICD10 Worksheet Patient Problems: Problems Problem Status Onset Dehydration Acute Hypernatremia Acute Viral meningitis Acute
[2017-10-03 15:49] VITALS: RESP 16
[2017-10-03 16:27] LABS: HSV 1 PCR, CSF Negative (Negative); HSV 2 PCR, CSF Negative (Negative)
[2017-10-03 22:57] LABS: ENTEROVIRUS BY PCR Negative (Negative); SPECIMEN SOURCE ENTEROVIRUS CSF
[2017-10-03 23:43] VITALS: BP 113/78; PULSE 70; TEMP 98.6; O2SAT 94
--- NOTE | 2017-10-04 09:41 | HOSPPROG ---
Hospitalist Progress Note Assessment/Plan: 27 yo M presenting with likely viral meningitis. Appreciate Dr Araujo and Dr Ceja seeing. * aseptic meningitis, encephalitis -continue empiric acyclovir -MRI stable -enterovirus & HSV both negative -CSF culture shows no growth -patient had a recent URI *chest pain -none further *Hypernatremia -improved * constipation -bowel protocol *Plan:will ask PT to see prior to dc Subjective: Rufus is feeling much better today/ no complaints. Objective: Vital Signs Temp Pulse Resp BP Pulse Ox 37.0 C 70 16 113/78 94 10/03/17 23:40 10/03/17 23:40 10/03/17 23:40 10/03/17 23:40 10/03/17 23:40 Laboratory Results 10/03/17 05:00 10/03/17 10/04/17 10/05/17 05:59 05:59 05:59 Intake Total 650 Balance 650 - Physical Exam Constitutional: no apparent distress Eyes: PERRL Ears, Nose, Mouth, Throat: moist mucous membranes, hearing normal Cardiovascular: regular rate and rhythym Respiratory: no respiratory distress Gastrointestinal: normoactive bowel sounds Skin: warm Musculoskeletal: full muscle strength Neurologic: AAOx3 Psychiatric: interacting appropriately ICD10 Worksheet Patient Problems: Problems Problem Status Onset Dehydration Acute Hypernatremia Acute Viral meningitis Acute
[2017-10-04] MEDS: SENNOSIDES/DOCUSATE SODIUM TAB PO SCH (10:01)
[2017-10-04] MEDS: CETIRIZINE 10 MG TAB PO SCH (10:01)
[2017-10-04] MEDS: ACETAMINOPHEN 325 MG TAB PO PRN (10:25)
--- NOTE | 2017-10-04 11:58 | ASMTCMCOM ---
CM Note CM Note Notes: CM met w/ pt for dispo planning. Pt has made improvements over course of hospitalization. Pt and does not anticipate having any needs at time of d/c. CM available for changes. Date Signed: 10/04/2017 11:58 AM Electronically Signed By:WALLY Crockett
--- NOTE | 2017-10-04 12:39 | PDIAF ---
- Diagnosis Diagnosis: viral meningitis, encephalitis Code Status: Full Code - Medication Management Discharge Medications: Medications to Continue on Transfer Propranolol HCl [Inderal 20mg (*)] 20 - 40 mg PO DAILY PRN 09/30/17 [Last Taken Unknown] Acetaminophen [Tylenol 325mg (*)] 325 - 650 mg PO Q6 PRN 10/01/17 [Last Taken Unknown] Cetirizine [ZyrTEC 10 mg (*)] 10 mg PO DAILY 10/01/17 [Last Taken Unknown] Ibuprofen [Motrin (*)] 200 - 400 mg PO Q6 PRN 10/01/17 [Last Taken Unknown] guaiFENesin [Mucinex 600 MG (*)] 600 mg PO BID PRN 10/01/17 [Last Taken Unknown] Discharge Medications: Refer to the Discharge Home Medication list for PRN reason. - Orders Services needed: Home Care, Physical Therapy, Occupational Therapy Home Care Face to Face: I certify that this patient was under my care and that I had the required [id number] encounter meeting the encounter requirements on the discharge day. My findings support the fact that the patient is homebound as defined in Home Care Face to Face Continued: CMS Chapter 7 Medicare Benefits Manual 30.1.1 , The condition of the patient is such that there exists a normal inability to leave home and consequently, leaving home would require a considerable and taxing effort. Isolation Type: None Diet Recommendation: no restrictions on diet Diet Texture: Regular Texture Diet Activity/Weight Bearing Restrictions: as tolerated/ work on balance and doing stairs - Follow Up Care Current Providers and Referrals: Shahbaz Fowler MD [Primary Care Provider] - As per Instructions
--- NOTE | 2017-10-04 13:05 | GDS ---
[f rep st] DISCHARGE SUMMARY DISCHARGE DIAGNOSES: 1. Aseptic meningitis, encephalitis. 2. Chest pain. 3. Hypernatremia. 4. Constipation. CONSULTATIONS: 1. Dr. Teo Salinas. 2. Dr. Jose Araujo. HISTORY: Briefly, the patient is a 27-year-old gentleman who presented to the emergency room with complaints of confusion and headache. He underwent a spinal tap. He has a history of 2 weeks of viral symptoms with associated fatigue, fevers, and body aches. He continued to have high fevers for approximately 1 week, and then he developed a headache and intermittent confusion. He was admitted and started empirically on IV acyclovir. He improved during his stay. His cultures showed no growth. His blood cultures showed no growth. His enterovirus and HSV are both negative. Today, he is feeling markedly better. He will follow up with his primary care provider in the outpatient setting. HOSPITAL COURSE: 1. Aseptic meningitis, encephalitis, markedly improved. He had an MRI that was stable. 2. Chest pain, none further. 3. Hypernatremia from dehydration. 4. Constipation, on bowel protocol. DISCHARGE CONDITION: Stable. Blood pressure is 113/78, respiratory rate 16, pulse 70. Temperature is 37 degrees Celsius. O2 sats on room air are 94%. DISCHARGE INSTRUCTIONS: 1. To follow up with his primary care provider. 2. If he develops fever, chills, chest pain, or shortness of breath, return to the ER. 3. To continue his home medication regimen. 4. In addition, he will get home care physical and occupational therapy. /[id number]/MODL MTDD
--- NOTE | 2017-10-04 13:49 | ASMTCMCOM ---
CM Note CM Note Notes: PT worked with pt and is recommending HC. CM met w/ pt and again for dispo planning. Pt and would like to go w/ a home care agency that is covered through their insurance. CM made several referrals HC agencies. [facility] is able to follow pt at time of d/c for PT services. CM sent [facility] d/c orders. CM available for changes. Plan: HC, PT Date Signed: 10/04/2017 01:49 PM Electronically Signed By:WALLY Crockett
--- NOTE | 2017-10-04 15:56 | ASDISCHSUM ---
Discharge Information Plan Status:Home with Home Health Medically Cleared to Leave:10/03/2017 Discharge Date:10/04/2017 02:12 PM CM D/C Disposition: ADT D/C Disposition:Home, Routine, Self-Care Projected Discharge Date:10/04/2017 12:00 AM Transportation at D/C: Discharge Delay Reason: Follow-Up Date:10/04/2017 12:00 AM Discharge Slot: Final Diagnosis: Placement Information Referral Type:*Home Health Care Services Referral ID:[id number] Provider Name:[facility] (formerly [facility]) Address 1[address] [place] [address] Address 2: City:[place] Selection Factors: State:[place] Patient Contact Information Contact Name:NICOLASA Relationship: [facility] Work Phone: City:[place] Alternate Phone: State/Zip Code:[place] [address] Email: Financial Information Financial Class:HMO and PPO Plans Primary Plan Desc:[employer] Primary Plan Number:[id number] Secondary Plan Desc: Secondary Plan Number: Assessment Information [facility] CM Progress Note CM Note CM Note Notes: Pt admitted with meningiis. Anticipate d/c with no CM needs when medically cleared however CM will continue to follow for any change in needs. Date Signed: 10/01/2017 03:10 PM Electronically Signed By:IZZY Quach [facility] CM Progress Note CM Note CM Note Notes: CM met w/ pt for dispo planning. Pt has made improvements over course of hospitalization. Pt and does not anticipate having any needs at time of d/c. [facility] available for changes. Date Signed: 10/04/2017 11:58 AM Electronically Signed By:WALLY Crockett [facility] Progress Note CM Note CM Note Notes: PT worked with pt and is recommending HC. CM met w/ pt and again for dispo planning. Pt and would like to go w/ a home care agency that is covered through their insurance. CM made several referrals HC agencies. [facility] is able to follow pt at time of d/c for PT services. [facility] available for changes. Plan: [facility] PT Date Signed: 10/04/2017 01:49 PM Electronically Signed By:WALLY Crockett Intervention Information
[2017-10-05 17:53] LABS: MISCELLANEOUS TEST NON MAYO SEE COMMENTS
== END 2017-10-04 14:12 | disposition home health service (06) | DRG 98 ==
LOC: F3N 10-01 00:32 → OBSVTOIN 10-01 14:33 → F3E 10-03 13:37
PROVIDERS: ADMIT Student in an Organized Health Care Education/Training Program; ATTEND Internal Medicine
PROC: 009U3ZX Drainage of Spinal Canal, Percutaneous Approach, Diagnostic (ICD-10-PCS; principal; 2017-09-30)
DX: G03.0 Nonpyogenic meningitis (principal); R07.9 Chest pain, unspecified; E87.0 Hyperosmolality and hypernatremia; K59.00 Constipation, unspecified
CPT/HCPCS: 87798-90; 92507-GN; 92523-GN; 97116-GP; 97161-GP; 97165-GO; 97530-GO; 97535-GO; A9585; G0378; G0480; J0133